=== PATIENT | female | born 2000 | race Native Hawaiian/Other Pacific Islander ===

== ENCOUNTER 2020-02-24 18:40 | Outpatient (CLI) | payer BC | END 2020-02-24 18:41 | disposition EMS.NT | LOC: EMS 18:40 | PROVIDERS: ATTEND Surgery | DX: R00.0 Tachycardia, unspecified (principal); R03.1 Nonspecific low blood-pressure reading ==

== ENCOUNTER 2020-02-24 19:32 | Emergency (ER) | payer BC ==
--- NOTE | 2020-02-24 19:58 | ED Physician Documentation ---
PD HPI CHEST PAIN - Stated complaint Stated Complaint: LOW BP/HIGH HR - Chief complaint Chief Complaint: Cardiac - History obtained from History obtained from: Patient, Family (mom) - Additional information Additional information: 19-year-old woman previously healthy. She had PID a few months ago, and notes that she has ongoing mild low back pain and odd vaginal discharge since then. This evening she was in her usual state of health and developed palpitations, feeling like a rapid heartbeat beating out of her chest for about 15 to 30 minutes. This was followed by higher than normal blood pressure followed by lower than normal blood pressure down to 73/50. She feels back to normal now. There is no associated chest pain or trouble breathing. Also C/O 2 months worth of vaginal discharge since episode of PID. Review of Systems Constitutional: denies: Fever, Chills Cardiac: reports: Palpitations. denies: Chest pain / pressure Respiratory: denies: Dyspnea, Cough GI: denies: Abdominal Pain, Nausea, Vomiting PD PAST MEDICAL HISTORY - Allergies Allergies/Adverse Reactions: Allergies Allergy/AdvReac Type Severity Reaction Status Date / Time No Known Drug Allergies Allergy Verified 02/24/20 19:46 PD ED PE NORMAL - Vitals Vital signs reviewed: Yes - General General: Alert and oriented X 3, No acute distress - HEENT HEENT: PERRL, EOMI - Neck Neck: Supple, no meningeal sign, No bony TTP - Cardiac Cardiac: RRR, No murmur - Respiratory Respiratory: No respiratory distress, Clear bilaterally - Abdomen Abdomen: Non tender - Back Back: No CVA TTP, No spinal TTP - Derm Derm: Normal color, Warm and dry - Extremities Extremities: No edema, No calf tenderness / cord - Neuro Neuro: Alert and oriented X 3, Normal speech Results - Vitals Vitals: Vital Signs - 24 hr 02/24/20 02/24/20 02/24/20 19:47 20:01 20:06 Temperature 37.7 C H Heart Rate 88 85 Heart Rate [ 85 Sitting] Heart Rate [ 97 Standing] Heart Rate [ 85 Supine] Respiratory 16 16 Rate Blood Pressure 123/83 H 117/80 Blood Pressure 121/70 [Sitting] Blood Pressure 112/73 [Standing] Blood Pressure 117/80 [Supine] O2 Saturation 100 99 02/24/20 02/24/20 20:31 21:00 Temperature 37.2 C Heart Rate 80 75 Heart Rate [ Sitting] Heart Rate [ Standing] Heart Rate [ Supine] Respiratory 17 15 Rate Blood Pressure 109/69 109/74 Blood Pressure [Sitting] Blood Pressure [Standing] Blood Pressure [Supine] O2 Saturation 99 100 Oxygen O2 Source Room air - EKG (time done) 1941 Rate: Rate (enter#) (79) Rhythm: NSR [place]: Normal Intervals: Normal [place] QRS: Normal Ischemia: Normal ST segments Computer interpretation: Agree with computer - Labs Labs: Laboratory Tests 02/24/20 02/24/20 02/24/20 20:03 20:10 20:22 WBC 8.0 RBC 4.75 Hgb 15.4 Hct 44.3 MCV 93.3 MCH 32.4 H MCHC 34.8 RDW 11.4 L Plt Count 251 MPV 8.9 Neut # (Auto) 5.4 Lymph # (Auto) 1.8 [place] # (Auto) 0.5 Eos # (Auto) 0.2 Baso # (Auto) 0.1 Absolute Nucleated RBC 0.00 Nucleated RBC % 0.0 Sodium Potassium Chloride Carbon Dioxide Anion Gap BUN Creatinine Estimated GFR (MDRD) Glucose Calcium Total Bilirubin AST ALT Alkaline Phosphatase Total Protein Albumin Globulin Albumin/Globulin Ratio Lipase Urine Color YELLOW Urine Clarity CLEAR Urine pH 6.5 Ur Specific [place] <=1.005 Urine Protein NEGATIVE Urine Glucose (UA) NEGATIVE Urine Ketones NEGATIVE Urine Occult Blood TRACE-INTA Urine Nitrite NEGATIVE Urine Bilirubin NEGATIVE Urine Urobilinogen 0.2 (NORMAL) Ur Leukocyte Esterase NEGATIVE Ur Microscopic Review NOT INDICATED Urine Culture Comments NOT INDICATED Urine HCG, Qual NEGATIVE Chlam trachomat DNA PCR NEGATIVE N.gonorrhoeae DNA (PCR) NEGATIVE T. vaginalis (PCR) NEGATIVE 02/24/20 20:22 WBC RBC Hgb Hct MCV MCH MCHC RDW Plt Count MPV Neut # (Auto) Lymph # (Auto) [place] # (Auto) Eos # (Auto) Baso # (Auto) Absolute Nucleated RBC Nucleated RBC % Sodium 141 Potassium 3.4 L Chloride 108 Carbon Dioxide 21 Anion Gap 12.0 BUN 8 Creatinine 0.8 Estimated GFR (MDRD) 91 Glucose 101 H Calcium 9.6 Total Bilirubin 0.6 AST 26 ALT 24 Alkaline Phosphatase 44 Total Protein 8.1 Albumin 4.8 Globulin 3.3 Albumin/Globulin Ratio 1.5 Lipase 27 Urine Color Urine Clarity Urine pH Ur Specific [place] Urine Protein Urine Glucose (UA) Urine Ketones Urine Occult Blood Urine Nitrite Urine Bilirubin Urine Urobilinogen Ur Leukocyte Esterase Ur Microscopic Review Urine Culture Comments Urine HCG, Qual Chlam trachomat DNA PCR N.gonorrhoeae DNA (PCR) T. vaginalis (PCR) PD MEDICAL DECISION MAKING - ED course ED course: 19-year-old woman with resolved episode of palpitations with low blood pressure. EKG here was normal. Cardiac monitoring was without ectopy. Blood work was normal. I considered pulmonary embolism in this patient. Clinically the pretest probability of pulmonary embolism is less than 15%. I applied to the PERC rules as follows: The patient's age is under 50, heart rate less than 100, oxygen saturation greater than 94%, the patient does not have a history of DVT or PE. Patient has no recent trauma or surgery. The patient has no hemoptysis. The patient is not on exogenous estrogens. The patient does not have clinical signs suggesting DVT. As such the patient ruled out for pulmonary embolism by PERC criteria. For the subacute vaginal discharge she self swabbed and is referred to gang bore operator. Departure - Departure Disposition: 01 Home, Self Care Clinical Impression: Palpitations, Vaginal discharge Condition: Good Record reviewed to determine appropriate education?: Yes Instructions: ED Palpitations Follow-Up: [facility] [Provider Group] Comments: Call your doctor to arrange a follow-up appointment, make the next available appointment. In the interim, return anytime if worse or if new symptoms develop . Seems reasonable to follow-up with your physician and discuss Holter monitoring. Also follow-up with gynecology for evaluation of ongoing pelvic symptoms after PID treatment. Vaginitis panel and STD testing is pending, you will receive a phone call if positive. Discharge Date/Time: 02/24/20 21:14
[2020-02-24 20:26] LABS: BILIRUBIN,URINE NEGATIVE (NEGATIVE); GLUCOSE, URINE (UA) NEGATIVE (NEGATIVE); KETONES,URINE (UA) NEGATIVE (NEGATIVE); LEUKOCYTE ESTERASE, URINE NEGATIVE (NEGATIVE); NITRITE,URINE NEGATIVE (NEGATIVE); OCCULT BLOOD,URINE TRACE-INTA (NEGATIVE); PH,URINE 6.5 PH (5.0-7.5); PROTEIN,URINE NEGATIVE (NEGATIVE); UROBILINOGEN,URINE 0.2 (NORMAL) E.U./dL (NORMAL)
[2020-02-24 20:30] LABS: CLARITY,URINE CLEAR (CLEAR); HCG UR QUAL NEGATIVE
[2020-02-24 20:30] LABS: BASOPHILS # (AUTO) 0.1 10^3/uL (0.0-0.1); BASOPHILS % (AUTO) 0.6 %; EOSINOPHILS # (AUTO) 0.2 10^3/uL (0.0-0.7); EOSINOPHILS % (AUTO) 2.4 %; HGB - HEMOGLOBIN 15.4 g/dL (12.0-16.0); LYMPHOCYTES # (AUTO) 1.8 10^3/uL (1.5-3.5); LYMPHOCYTES % (AUTO) 22.6 %; MEAN CORPUSCULAR HEMOGLOBIN 32.4 pg (27.0-31.0); MEAN CORPUSCULAR HGB CONC 34.8 g/dL (32.0-36.0); MEAN CORPUSCULAR VOLUME 93.3 fL (81.0-99.0); MEAN PLATELET VOLUME 8.9 fL (7.9-10.8); MONOCYTES # (AUTO) 0.5 10^3/uL (0.0-1.0); NEUTROPHILS # (AUTO) 5.4 10^3/uL (1.5-6.6); PLT - PLATELET COUNT 251 10^3/uL (130-450); RED BLOOD COUNT 4.75 10^6/uL (4.20-5.40); RED CELL DISTRIBUTION WIDTH 11.4 % (12.0-15.0)
[2020-02-24 20:40] LABS: ALBUMIN 4.8 g/dL (3.2-5.5); ALBUMIN/GLOBULIN RATIO 1.5 (1.0-2.2); BILIRUBIN,TOTAL 0.6 mg/dL (0.2-1.0); CALCIUM 9.6 mg/dL (8.5-10.3); CREATININE 0.8 mg/dL (0.4-1.0); TOTAL PROTEIN 8.1 g/dL (6.7-8.2)
[2020-02-24 21:01] VITALS: BP 109/74
[2020-02-24 23:53] LABS: TRICHOMONAS VAGINALIS DNA NEGATIVE (NEGATIVE)
--- NOTE | 2020-02-25 12:40 | ED Physician Documentation ---
ED Addendum - Addendum Addendum: 02/25/20 12:39 I called and spoke to the patient about the vaginosis/vaginitis swab. Discussed options including returning to the emergency department for recollection, trialing a prescription for Flagyl since it seems most consistent with BV, or following up with gynecology previously recommended and she opts for the third option. Understands she is welcome to return at any time if worse.
== END 2020-02-24 21:14 | disposition home or self-care (01) ==
LOC: ED 19:32
DX: R00.2 Palpitations (principal); N89.8 Other specified noninflammatory disorders of vagina
CPT/HCPCS: 80053; 81001; 81003; 81025; 83690; 85025; 87086; 87491; 87591; 87661; 87801; 93005; 99284